=== PATIENT | female | born 1940 | race Caucasian/White ===

== ENCOUNTER → 2022-03-02 | Outpatient (CLI) | payer MEDICARE, OTHER ==
[~2022-03-02] MED LIST: ACET1TAB37 PO; ALBU8.5H2 IH; ALBU8.5H2 INH; AMLO5TAB2 PO; ASP325T PO; BENZ100C18 PO; CA C1TAB75 PO; CALC-656 PO; CARV12.53 PO; CEFD300C3 PO; CEFZIL PO; CLCX100C PO; CLON0.1T14 PO; CRV25T PO; CYAN100053 IJ; CYAN100053 IM; DCS100C PO; FENO134C PO; FENO145T2 PO; FLT05NA16 NSEACH; GFN600TCR PO; HYDR12.56 PO; LACT1TAB6 PO; MTF500T PO; MULT-608 PO; OMEG1CAP51 PO; OSLT75C PO; PRCD5U PO; PRD20T PO; PROBIOTIC1 EACH PO; RAMI10CA PO; RAMI10TA PO; RIVA20TA2 PO; SITA1TAB2 PO
--- NOTE | 2022-03-02 16:34 | Diagnostic Imaging Report ---
EXAMINATION: Chest 2 view HISTORY: LOBAR PNEUMONIA COMPARISON: 10/08/2015 FINDINGS: Heart size and pulmonary vasculature are normal. The lungs are clear without consolidation, pleural effusion, or pneumothorax. Degenerative changes of the thoracic spine. Osseous structures are otherwise intact. IMPRESSION: 1. No acute radiographic abnormality in the chest. Dictated by: Dictated on workstation # [id number]
== END ==
LOC: RAD 14:41
PROVIDERS: ATTEND Internal Medicine
DX: J18.1 Lobar pneumonia, unspecified organism (principal)
CPT/HCPCS: 71046